=== PATIENT | male | born 1965 | race African-American/Black ===

== ENCOUNTER 2016-09-16 05:12 | Emergency (ER) | payer OTHER ==
[~2016-09-16] VITALS: Ht 190.5 cm; Wt 157.9 kg
[~2016-09-16 05:12] MED LIST: APRESOLINE25 MG PO; CARVEDILOL25 MG PO; CELECOXIB200 MG PO; COLACE100 MG PO; DIGOXIN250 MCG PO; EPLERENONE25 MG PO; FLEXERIL10 MG PO; FUROSEMIDE40 MG PO; NORCO 5/3251 TABLET PO; PERCOCET 5/31 TABLET PO; SPIRONOLACTONE50 MG PO; VENTOLIN HFA18 GM IH; XARELTO20 MG PO; ZOFRAN4 MG PO
[2016-09-16 05:39] LABS: HEMATOCRIT 39.3 % (38.0-50.0); MCH 29.3 PG (29.0-34.0); MCHC 33.6 G/DL (30.0-36.0); MCV 87.3 FL (86-99); MEAN PLAT.VOLUME 10.4 uM^3 (9.0-12.4); PLATELET COUNT 235 K/uL (156-360); RBC DIS.WIDTH-CV 14.5 % (11.8-14.6); RBC DIS.WIDTH-SD 44.8 % (39-53); WHITE BLOOD COUNT 7.9 K/uL (4.1-10.2)
[2016-09-16 05:50] LABS: CHLORIDE 106 mEq/L (99-109); SODIUM 142 mEq/L (136-147)
[2016-09-16 05:52] LABS: GLUCOSE 128 mg/dL (70-99)
[2016-09-16 05:53] LABS: ANION GAP 9 MEQ/L (2-14)
[2016-09-16 05:54] LABS: TOTAL BILIRUBIN 0.5 mg/dL (0.0-1.0)
[2016-09-16 05:56] LABS: ALKALINE PHOSPHATASE 67 IU/L (3-129); GFR ESTIMATE (CALCULATED) > 59 mL/min/
[2016-09-16 05:57] LABS: UREA NITROGEN (BUN) 16 mg/dL (9-23)
[2016-09-16 05:58] LABS: DIRECT BILIRUBIN 0.3 mg/dL (0.0-0.3)
[2016-09-16 05:59] LABS: LIPASE 32 U/L (1.0-51.0)
[2016-09-16] MEDS ORDERED: ZOFRAN4 MG PO (06:01)
[2016-09-16] MEDS ORDERED: NAPROSYN500 MG PO (06:01)
[2016-09-16 07:52] VITALS: BP 107/92
== END 2016-09-16 07:53 | disposition home or self-care (01) ==
LOC: EME 05:12
PROVIDERS: Emergency Medicine
DX: K42.9 Umbilical hernia without obstruction or gangrene (principal); I10 Essential (primary) hypertension
CPT/HCPCS: 74176; 80048; 80076; 81003; 83690; 85027; 99281; 99284; J2270; J2405; J7030

== ENCOUNTER 2016-09-19 08:17 | Observation (INO) | payer OTHER ==
[~2016-09-19] VITALS: Ht 190.5 cm; Wt 155.4 kg
[~2016-09-19 08:17] MED LIST changes: +NAPROSYN500 MG PO
[2016-09-19 09:38] LABS: HEMATOCRIT 38.1 % (38.0-50.0); MCH 29.2 PG (29.0-34.0); MCHC 33.3 G/DL (30.0-36.0); MCV 87.6 FL (86-99); MEAN PLAT.VOLUME 11.5 uM^3 (9.0-12.4); PLATELET COUNT 227 K/uL (156-360); RBC DIS.WIDTH-CV 14.6 % (11.8-14.6); RBC DIS.WIDTH-SD 46.6 % (39-53); RED BLOOD COUNT 4.35 M/uL (4.00-5.50); WHITE BLOOD COUNT 7.2 K/uL (4.1-10.2)
[2016-09-19 09:47] LABS: CHLORIDE 106 mEq/L (99-109); POTASSIUM 3.9 mEq/L (3.7-5.4); SODIUM 138 mEq/L (136-147)
[2016-09-19 09:49] LABS: GLUCOSE 149 mg/dL (70-99)
[2016-09-19 09:50] LABS: ANION GAP 9 MEQ/L (2-14)
[2016-09-19 09:53] LABS: ALKALINE PHOSPHATASE 66 IU/L (3-129); GFR ESTIMATE (CALCULATED) > 59 mL/min/
[2016-09-19 09:54] LABS: UREA NITROGEN (BUN) 15 mg/dL (9-23)
[2016-09-19 09:55] LABS: TOTAL BILIRUBIN 1.1 mg/dL (0.0-1.0); TROP-I INTERPRETATION NEGATIVE; TROPONIN-I 0.05 ng/mL (0.0-0.30)
[2016-09-19] MEDS ORDERED: FLEXERIL10 MG PO (11:38)
[2016-09-19] MEDS ORDERED: ZOFRAN4 MG PO (11:39)
[2016-09-19] MEDS ORDERED: PRILOSEC20 MG PO (11:40)
[2016-09-19 13:55] VITALS: BP 128/81
[2016-09-19 17:17] LABS: TROP-I INTERPRETATION NEGATIVE; TROPONIN-I 0.06 ng/mL (0.0-0.30)
[2016-09-19 20:00] VITALS: BP 120/90
[2016-09-19 23:43] VITALS: BP 99/56
[2016-09-20 04:25] VITALS: BP 135/75
[2016-09-20 06:31] LABS: ANION GAP 9 MEQ/L (2-14); CHLORIDE 103 MEQ/L (99-109); GFR ESTIMATE (CALCULATED) > 59 mL/min/; GLUCOSE 121 mg/dL (70-99); POTASSIUM 3.8 MEQ/L (3.7-5.4); SAMPLE HEMOLYSIS CHECK 0; SAMPLE ICTERIC CHECK 0; SAMPLE LIPEMIA CHECK 0; SODIUM 139 MEQ/L (136-147); UREA NITROGEN (BUN) 17 mg/dL (9-23)
[2016-09-20 07:30] VITALS: BP 138/87
[2016-09-20 08:09] VITALS: BP 135/78
== END 2016-09-20 10:48 | disposition home or self-care (01) ==
LOC: EME 08:17 → EDOF 12:30 → 5WEST 13:37
PROVIDERS: Internal Medicine; Nurse Practitioner Family
DX: I50.23 Acute on chronic systolic (congestive) heart failure (principal); I48.2 Chronic atrial fibrillation; I10 Essential (primary) hypertension; Z95.810 Presence of automatic (implantable) cardiac defibrillator; Z82.49 Family history of ischemic heart disease and other diseases of the circulatory system; Z87.898 Personal history of other specified conditions
CPT/HCPCS: 71020; 71250; 74020; 80048; 80053; 83880; 84484; 85027; 93005; 94640; 99202; 99281; 99285; G0378; J1940

== ENCOUNTER 2016-10-09 09:34 | Day surgery (SDC) | payer OTHER ==
[~2016-10-09] VITALS: Ht 190.5 cm; Wt 157.0 kg
[~2016-10-09 09:34] MED LIST changes: +LO-DOSE ASPIRIN81 M2 PO; +METOPROLOL SUCC50 MG PO; +NITROSTAT0.4 MG SL; +PRILOSEC20 MG PO
== END 2016-10-09 16:45 | disposition home or self-care (01) ==
LOC: CATH 09:34
DX: I42.9 Cardiomyopathy, unspecified (principal); R93.1 Abnormal findings on diagnostic imaging of heart and coronary circulation; I48.91 Unspecified atrial fibrillation; I25.9 Chronic ischemic heart disease, unspecified; Z95.810 Presence of automatic (implantable) cardiac defibrillator; Z79.01 Long term (current) use of anticoagulants; F14.20 Cocaine dependence, uncomplicated; F10.21 Alcohol dependence, in remission
CPT/HCPCS: C1750; C1769; C1887; J1644; J2250; J3010

== ENCOUNTER 2016-11-23 09:48 | Emergency (ER) | payer OTHER ==
[~2016-11-23] VITALS: Ht 190.5 cm; Wt 159.0 kg
[2016-11-23 12:47] LABS: MCH 28.4 PG (29.0-34.0); MCHC 32.4 G/DL (30.0-36.0); MCV 87.7 FL (86-99); MEAN PLAT.VOLUME 11.3 uM^3 (9.0-12.4); PLATELET COUNT 215 K/uL (156-360); RBC DIS.WIDTH-CV 14.2 % (11.8-14.6); RBC DIS.WIDTH-SD 45.7 % (39-53); RED BLOOD COUNT 4.79 M/uL (4.00-5.50); WHITE BLOOD COUNT 6.3 K/uL (4.1-10.2)
[2016-11-23 13:02] LABS: CHLORIDE 107 mEq/L (99-109); POTASSIUM 3.8 mEq/L (3.7-5.4); SODIUM 142 mEq/L (136-147)
[2016-11-23 13:05] LABS: GLUCOSE 120 mg/dL (70-99)
[2016-11-23 13:06] LABS: ANION GAP 9 MEQ/L (2-14)
[2016-11-23 13:07] LABS: TOTAL BILIRUBIN 0.6 mg/dL (0.0-1.0)
[2016-11-23 13:08] LABS: ALKALINE PHOSPHATASE 56 IU/L (3-129); GFR ESTIMATE (CALCULATED) > 59 mL/min/
[2016-11-23 13:09] LABS: UREA NITROGEN (BUN) 18 mg/dL (9-23)
[2016-11-23 13:50] VITALS: BP 130/98
== END 2016-11-23 13:51 | disposition home or self-care (01) ==
LOC: EXP 09:48 → EME 09:48 → EXP 13:51
DX: R10.32 Left lower quadrant pain (principal); I11.0 Hypertensive heart disease with heart failure; I50.9 Heart failure, unspecified; Z95.810 Presence of automatic (implantable) cardiac defibrillator; Z79.01 Long term (current) use of anticoagulants; Z79.82 Long term (current) use of aspirin
CPT/HCPCS: 80053; 81003; 85027; 99281; 99284; J2270

== ENCOUNTER 2016-12-04 23:43 | Inpatient (IN) | payer OTHER ==
[~2016-12-04] VITALS: Ht 190.5 cm; Wt 157.4 kg
[~2016-12-04 23:43] MED LIST changes: -GABAPENTIN800 MG PO; -LYRICA75 MG PO; -MEDROL DOSEPAK4 MG PO
[2016-12-05] VITALS (21 sets, daily range): BP systolic 88–177; BP diastolic 51–110
[2016-12-05 00:23] LABS: CREATININE 1.4 mg/dL (0.6-1.3); POTASSIUM 4.2 mEq/L (3.7-5.4)
[2016-12-05 00:28] LABS: BASOPHIL COUNT 0.1 K/uL (0-0.1); EOSINOPHIL (%) 2.3 % (0-5); EOSINOPHIL COUNT 0.2 K/uL (0-0.3); HEMATOCRIT 42.7 % (38.0-50.0); IMMATURE GRANULOCYTE (%) 0.5 % (0.0-0.7); IMMATURE GRANULOCYTE COUNT 0.1 K/uL; INSTRUMENT ABS NEUTROPHIL CT 5.2 K/uL; LYMPHOCYTE COUNT 3.7 K/uL (1.0-2.8); MCH 28.3 PG (29.0-34.0); MCHC 31.1 G/DL (30.0-36.0); MCV 90.9 FL (86-99); MEAN PLAT.VOLUME 11.1 uM^3 (9.0-12.4); MONOCYTE (%) 6.9 % (3-12); MONOCYTE COUNT 0.7 K/uL (0-0.8); NEUTROPHIL (%) 52.8 % (45-76); NEUTROPHIL COUNT 5.2 K/uL (1.8-6.4); PLATELET COUNT 240 K/uL (156-360); RBC DIS.WIDTH-CV 14.9 % (11.8-14.6); RBC DIS.WIDTH-SD 49.4 % (39-53)
[2016-12-05 00:29] LABS: WHITE BLOOD COUNT 9.9 K/uL (4.1-10.2)
[2016-12-05 00:31] LABS: CHLORIDE 107 mEq/L (99-109); POTASSIUM 4.2 mEq/L (3.7-5.4); SODIUM 140 mEq/L (136-147)
[2016-12-05 00:33] LABS: GLUCOSE 254 mg/dL (70-99)
[2016-12-05 00:34] LABS: ANION GAP 14 MEQ/L (2-14)
[2016-12-05 00:35] LABS: INTER. NORMALIZED RATIO 1.2; PROTHROMBIN TIME 12.2 (9.2-11.2); PTT 21.8 (25-32); TOTAL BILIRUBIN 0.9 mg/dL (0.0-1.0)
[2016-12-05 00:36] LABS: ALKALINE PHOSPHATASE 62 IU/L (3-129)
[2016-12-05 00:37] LABS: GFR ESTIMATE (CALCULATED) > 59 mL/min/
[2016-12-05 00:38] LABS: UREA NITROGEN (BUN) 19 mg/dL (9-23)
[2016-12-05 00:40] LABS: LIPASE 25 U/L (1.0-51.0)
[2016-12-05 00:44] LABS: TROP-I INTERPRETATION NEGATIVE; TROPONIN-I 0.05 ng/mL (0.0-0.30)
[2016-12-05 00:45] LABS: BASE EXCESS -6.9 mEq/L (-3 to +3); BICARBONATE 24.1 mEq/L (22-26); CARBOXY HGB 1.7 % (0-5); COMMENTS - BLOOD GASES C+; DEVICE 840; FI02 100 %; MECHANICAL RATE 16 resp/min; METHEMOGLOBIN 0.4 % (0-1.5); MODE AC; PCO2 76 mm Hg (35-45); PO2 76 mm Hg (80-100); SITE RR; TOTAL RESP RATE 18 resp/min; pH 7.11 (7.35-7.45)
[2016-12-05 00:45] LABS: DIGOXIN 0.6 ng/mL (0.8-2.0)
[2016-12-05 00:46] LABS: PEEP 10 CM/H20; TIDAL VOLUME 500 ML
[2016-12-05 02:13] LABS: BASE EXCESS -3.9 mEq/L (-3 to +3); BICARBONATE 23.4 mEq/L (22-26); CARBOXY HGB 1.2 % (0-5); METHEMOGLOBIN 0.8 % (0-1.5)
[2016-12-05 02:14] LABS: COMMENTS - BLOOD GASES C+; DEVICE 840; FI02 100 %; MECHANICAL RATE 20 resp/min; MODE AC; PCO2 51 mm Hg (35-45); PEEP 20 CM/H20; PO2 95 mm Hg (80-100); SITE RR; TIDAL VOLUME 500 ML; TOTAL RESP RATE 27 resp/min; pH 7.27 (7.35-7.45)
[2016-12-05 02:24] LABS: ADD MIUA? YES; BILIRUBIN NEGATIVE; BLOOD NEGATIVE; COLOR AMBER ((YELLOW)); GLUCOSE (STRIP) 50; KETONES NEGATIVE; LEUKOCYTES NEGATIVE; NITRITE NEGATIVE; PROTEIN (STRIP) >=500; SPECIFIC GRAVITY 1.023 (1.000-1.030)
[2016-12-05 02:30] LABS: BACTERIA RARE /HPF; EPITHELIAL CELLS RARE /HPF; MUCUS 2+ /LPF; UCUL ADDED? NO
[2016-12-05 02:32] LABS: GRANULAR CASTS 30-35 /LPF
[2016-12-05 04:22] LABS: METH RESISTANT S AUREUS PCR NEGATIVE (NEGATIVE)
[2016-12-05 04:25] LABS: PROBE CHECK PASS; SPECIMEN PROCESSING CONTROL PASS
[2016-12-05 05:06] LABS: BASE EXCESS -0.6 mEq/L (-3 to +3); BICARBONATE 26.6 mEq/L (22-26); CARBOXY HGB 1.9 % (0-5); COMMENTS - BLOOD GASES C+A+; DEVICE VENTILATOR; FI02 60 %; MECHANICAL RATE 22 resp/min; METHEMOGLOBIN 1.3 % (0-1.5); MODE AC; PCO2 54 mm Hg (35-45); PEEP 14 CM/H20; PO2 77 mm Hg (80-100); PRESSURE CONTROL VENTILATION 15 CM H20; SITE RR; TOTAL RESP RATE 22 resp/min
[2016-12-05 06:11] LABS: POINT-OF-CARE METER ID UU14162636; POINT-OF-CARE USER ID PHATLC
[2016-12-05 07:14] LABS: Estimated Average Glucose 151 mg/dL (70-123); HEMOGLOBIN A1c (GLYCOHEMOGLOB) 6.9 % HGB (Below 5.7)
[2016-12-05 07:18] LABS: HEMATOCRIT 38.9 % (38.0-50.0); MCH 28.8 PG (29.0-34.0); MCHC 31.9 G/DL (30.0-36.0); MCV 90.3 FL (86-99); RBC DIS.WIDTH-CV 14.9 % (11.8-14.6); RBC DIS.WIDTH-SD 49.3 % (39-53); RED BLOOD COUNT 4.31 M/uL (4.00-5.50); WHITE BLOOD COUNT 8.3 K/uL (4.1-10.2)
[2016-12-05 07:34] LABS: TROP-I INTERPRETATION NEGATIVE; TROPONIN-I 0.07 ng/mL (0.0-0.30)
[2016-12-05 07:38] LABS: ANION GAP 8 MEQ/L (2-14); CHLORIDE 108 MEQ/L (99-109); GFR ESTIMATE (CALCULATED) > 59 mL/min/; SAMPLE HEMOLYSIS CHECK 0; SAMPLE ICTERIC CHECK 0; SAMPLE LIPEMIA CHECK 0; SODIUM 142 MEQ/L (136-147); UREA NITROGEN (BUN) 20 mg/dL (9-23)
[2016-12-05 07:40] LABS: GLUCOSE 100 mg/dL (70-99)
[2016-12-05 07:41] LABS: MEAN PLAT.VOLUME 11.1 uM^3 (9.0-12.4); PLAT.SUFFICIENCY ADEQUATE
[2016-12-05 07:47] LABS: PLATELET COUNT 154 K/uL (156-360)
[2016-12-05] MEDS ORDERED: APRESOLINE25 MG PO (11:39)
[2016-12-05] MEDS ORDERED: MEDROL DOSEPAK4 MG PO (11:42)
[2016-12-05] MEDS ORDERED: EPLERENONE25 MG PO (11:43)
[2016-12-05] MEDS ORDERED: GABAPENTIN800 MG PO (11:45)
[2016-12-05] MEDS ORDERED: LYRICA75 MG PO (11:45)
[2016-12-05 12:44] LABS: TROP-I INTERPRETATION NEGATIVE; TROPONIN-I 0.06 ng/mL (0.0-0.30)
[2016-12-05 13:07] LABS: POINT-OF-CARE METER ID UU14162636
[2016-12-05 17:45] LABS: POINT-OF-CARE METER ID UU14162636
[2016-12-05 18:49] LABS: AMYLASE 14 IU/L (1-118)
[2016-12-05 18:55] LABS: LIPASE 13 U/L (1.0-51.0)
[2016-12-06] VITALS (13 sets, daily range): BP systolic 110–164; BP diastolic 60–93
[2016-12-06 05:55] LABS: POINT-OF-CARE METER ID UU13113731; POINT-OF-CARE USER ID PHATLC
[2016-12-06 06:05] LABS: HEMATOCRIT 38.3 % (38.0-50.0); MCH 28.1 PG (29.0-34.0); MCHC 31.6 G/DL (30.0-36.0); MCV 89.1 FL (86-99); MEAN PLAT.VOLUME 11.3 uM^3 (9.0-12.4); PLATELET COUNT 152 K/uL (156-360); RBC DIS.WIDTH-CV 15.3 % (11.8-14.6); RBC DIS.WIDTH-SD 49.7 % (39-53); WHITE BLOOD COUNT 8.5 K/uL (4.1-10.2)
[2016-12-06 06:36] LABS: ANION GAP 10 MEQ/L (2-14); CHLORIDE 103 MEQ/L (99-109); GFR ESTIMATE (CALCULATED) > 59 mL/min/; GLUCOSE 116 mg/dL (70-99); POTASSIUM 3.3 MEQ/L (3.7-5.4); SAMPLE HEMOLYSIS CHECK 0; SAMPLE ICTERIC CHECK 0; SAMPLE LIPEMIA CHECK 0; SODIUM 140 MEQ/L (136-147); UREA NITROGEN (BUN) 16 mg/dL (9-23)
[2016-12-07 04:06] VITALS: BP 138/76
[2016-12-07 05:59] LABS: HEMATOCRIT 39.2 % (38.0-50.0); MCH 28.3 PG (29.0-34.0); MCHC 31.9 G/DL (30.0-36.0); MCV 88.7 FL (86-99); MEAN PLAT.VOLUME 11.1 uM^3 (9.0-12.4); PLATELET COUNT 171 K/uL (156-360); RBC DIS.WIDTH-CV 15.1 % (11.8-14.6); RBC DIS.WIDTH-SD 49.1 % (39-53); RED BLOOD COUNT 4.42 M/uL (4.00-5.50); WHITE BLOOD COUNT 9.3 K/uL (4.1-10.2)
[2016-12-07 06:25] LABS: ANION GAP 7 MEQ/L (2-14); CHLORIDE 103 MEQ/L (99-109); GFR ESTIMATE (CALCULATED) > 59 mL/min/; GLUCOSE 131 mg/dL (70-99); POTASSIUM 3.9 MEQ/L (3.7-5.4); SAMPLE HEMOLYSIS CHECK 0; SAMPLE ICTERIC CHECK 0; SAMPLE LIPEMIA CHECK 0; SODIUM 140 MEQ/L (136-147); UREA NITROGEN (BUN) 14 mg/dL (9-23)
[2016-12-07 08:00] VITALS: BP 142/60
[2016-12-07 12:00] VITALS: BP 180/72
[2016-12-07 14:00] VITALS: BP 152/88
[2016-12-07] MEDS ORDERED: VENTOLIN HFA18 GM IH (14:23)
== END 2016-12-07 15:10 | disposition home or self-care (01) | DRG 208 ==
LOC: EME 23:43 → 4WEST 12-05 02:09 → EDOF 12-05 02:09 → 4SOUTH 12-05 02:09 → 4WEST 12-05 02:51 → 4SOUTH 12-06 15:32
PROVIDERS: Emergency Medicine; Internal Medicine; Internal Medicine Nephrology
DX: J96.01 Acute respiratory failure with hypoxia (principal); I11.0 Hypertensive heart disease with heart failure; I50.23 Acute on chronic systolic (congestive) heart failure; Z95.810 Presence of automatic (implantable) cardiac defibrillator; E66.9 Obesity, unspecified; I48.2 Chronic atrial fibrillation; Z79.01 Long term (current) use of anticoagulants; K21.9 Gastro-esophageal reflux disease without esophagitis; K57.92 Diverticulitis of intestine, part unspecified, without perforation or abscess without bleeding; I25.10 Atherosclerotic heart disease of native coronary artery without angina pectoris; I42.0 Dilated cardiomyopathy; I44.7 Left bundle-branch block, unspecified; F10.21 Alcohol dependence, in remission; J96.02 Acute respiratory failure with hypercapnia; J45.909 Unspecified asthma, uncomplicated; E87.4 Mixed disorder of acid-base balance; R73.9 Hyperglycemia, unspecified; Z68.41 Body mass index [BMI] 40.0-44.9, adult
CPT/HCPCS: 36600; 71010; 76705; 80047; 80048; 80048 91; 80053; 80162; 81003; 82150; 82803; 82948; 83036; 83605; 83690; 83735; 83880; 84100; 84484; 85025; 85027; 85610; 85730; 87040; 87070; 87205; 87641; 93005; 93306; 93970; 94002; 94003; 94640; 94640 76; 94644; 94760; 94799; 99202; 99281; 99285; J1815; J1940; J2250; J2704; J3010; J7030

== ENCOUNTER → 2016-12-04 | Outpatient (CLI) | payer OTHER ==
[~2016-12-04] VITALS: Ht 190.5 cm; Wt 157.4 kg
[~2016-12-04] MED LIST changes: +ALDACTONE50 MG PO; +COREG25 M1 PO; +GABAPENTIN800 MG PO; +LANOXIN250 MCG PO; +LASIX40 MG PO; +LYRICA75 MG PO; +MEDROL DOSEPAK4 MG PO
== END | disposition home or self-care (01) ==
LOC: AMB 12:10
PROC: 0DJD8ZZ Inspection of Lower Intestinal Tract, Via Natural or Artificial Opening Endoscopic (ICD-10-PCS; principal; 2016-12-04)
DX: Z12.11 Encounter for screening for malignant neoplasm of colon (principal); K64.8 Other hemorrhoids; K21.9 Gastro-esophageal reflux disease without esophagitis; I11.0 Hypertensive heart disease with heart failure; I50.9 Heart failure, unspecified; I48.91 Unspecified atrial fibrillation; Z79.01 Long term (current) use of anticoagulants; Z95.810 Presence of automatic (implantable) cardiac defibrillator; J45.909 Unspecified asthma, uncomplicated; I51.7 Cardiomegaly; Z88.0 Allergy status to penicillin